=== PATIENT | female | born 1990 | race Caucasian/White ===

== ENCOUNTER → 2018-05-08 09:59 | Outpatient (CLI) | payer MEDICAID, SELFPAY ==
--- NOTE | 2018-05-08 10:01 | US_ITS ---
US extremity LT limited HISTORY: ITS.REASON: soft tissue mass left foot ORDERING PHYSICIAN: Lise Celeste DPM PATIENT AGE: 27 years COMPARISON: None FINDINGS: There is a tubular cystic lesion along the lateral aspect of the left foot corresponding to the palpable left amount of the. This measures 3.7 cm longitudinal x 0.7 cm thick over the lateral aspect of the left foot. This is subcutaneous. No vascular flow. IMPRESSION: Longitudinal cystic structure in the lateral subcutaneous region of the left at corresponding to palpable abnormality. Possibly related to a ganglion cyst. MRI may be of further value for characterization.
== END ==
PROVIDERS: PCP Pediatrics; Visit Provider Podiatrist
DX: R22.42 Localized swelling, mass and lump, left lower limb (principal)
CPT/HCPCS: 76882

== ENCOUNTER → 2018-10-15 09:00 | Outpatient (CLI) | payer MEDICAID, SELFPAY ==
--- NOTE | 2018-10-15 09:01 | MR_ITS ---
PROCEDURE: MR FOOT LT WO/W CON CLINICAL INDICATION: pain, soft tissue mass The soft tissue mass of the foot along the lateral aspect of the foot with foot pain with nerve symptoms, ganglion cyst possible, 2 in knots 1 lateral and 1 plantar surface with markers placed on both spots from in COMPARISON: FOOT LT 3V from 10/18/2017 EXTLL US extremity LT limited from 05/08/2018 TECHNIQUE: Routine multiplanar multi echo sequences are performed without and with gadolinium enhancement. FINDINGS: No fracture or dislocation. No bone marrow edema. Markers are placed to denote the area of palpable abnormality along the lateral aspect of the midfoot in the plantar aspect at the head of the 2nd and 3rd metatarsals. Or there is a small amount of fluid within the anterior and posterior aspect of the ankle joint and the posterior talocalcaneal joint. A tubular somewhat serpiginous sub cutaneous fluid collection is present extending into from the anterior aspect of the ankle just anterior to the distal fibula the at the level of the ankle joint extending inferiorly for length of approximately 4 cm and measuring up to 0.5 cm in with. This is hypointense on T1 and hyperintense on T2. This does show some contrast enhancement distally at the peroneal tendon sheath. Inferiorly this extends to the perineal brevis tendon sheath. Superiorly this originates within the subcutaneous tissues and not at a tendon or ligament. Palpable abnormality is also reported at the head of the 2nd and 3rd metatarsal. Markers also placed at this area. There is an area of subcutaneous edema at this region. In addition, there is an abnormal area of signal intensity rounded in nature which extends from between the flexor digitorum tendons of the 2nd and 3rd metatarsal distally for length of approximately 4.5 cm. Distally this shows decreased T1 and increased T2 signal and does demonstrate contrast enhancement this does arise along the distal aspect of the plantar fascia. IMPRESSION: 1. Well-circumscribed tubular shapes cystic appearing subcutaneous lesion along the lateral and anterior aspect of the ankle as described above. This does extend to the peroneal tendon sheath of the peroneal brevis. This could represent an atypical type of ganglionic cyst. Differential diagnosis would include a thrombosed vein. A nerve sheath tumor is felt to be less likely due to the ultrasound characteristics. Follow-up is suggested to confirm stability 2. Unusual longitudinal area of abnormal signal intensity with nodular enhancement distally arising between the 2nd and 3rd flexor digitorum tendons with some associated subcutaneous enhancement. The this is somewhat more distal than where 1 would expect a plantar fibroma however, that is included in the differential diagnosis. A nerve sheath tumor is also consideration. There is some inflammation around this lesion. This does not appear to represent a White's neuroma Dictated by: Ortiz Duke MD 10/18/2018 11:27 Signed by: <Electronically signed by Ortiz Duke MD in [place]> 10/18/2018 11:27
== END ==
PROVIDERS: PCP Pediatrics; Visit Provider Podiatrist
DX: M67.472 Ganglion, left ankle and foot (principal); R22.42 Localized swelling, mass and lump, left lower limb
CPT/HCPCS: 73720; A9576

== ENCOUNTER → 2018-11-10 11:42 | Outpatient (CLI) | payer MEDICAID, SELFPAY ==
--- NOTE | 2018-11-10 11:51 | XR_ITS ---
PROCEDURE: XR CHEST 2V CLINICAL HISTORY: FORMER TOBACCO USE, PRE-OP Slight cough at night, former tobacco use COMPARISON: No exams were available for comparison FINDINGS: The cardiomediastinal silhouette and pulmonary vascularity are within normal limits. The lungs are clear without infiltrates, suspicious nodules, or pleural effusions. No acute bony abnormalities. IMPRESSION: No acute findings. Dictated by: Ortiz Duke MD 11/10/2018 12:40 Electronically signed by Ortiz Duke MD in [place] 11/10/2018 12:40
--- NOTE | 2018-11-10 12:09 | ECG_ITS ---
APPROVED REPORT Exam: Resting ECG HR:81 bpm ECG Measurements Heart Rate 81 AXES OH 158 P 16 QRSd 74 QRS 24 QT 354 T 6 QTc 411 <Conclusion> Normal sinus rhythm Poor R Wave Progression Abnormal ECG Electronically signed by : Dann Ingram, 11/10/2018 17:32:38
[2018-11-10 12:45] LABS: Basophils % 0.5 % (0.1-2.0); Eosinophils # 0.2 K/mm3 (0.0-0.4); Eosinophils % 2.9 % (0.1-12.0); Hematocrit 41.8 % (37.0-47.0); Lymphocytes # 2.2 K/mm3 (0.7-4.5); Lymphocytes % 33.6 % (10-50); Mean Corpuscular HGB Conc 33.6 g/dL (31.8-35.4); Mean Corpuscular Hemoglobin 30.7 pg (27.0-31.2); Mean Corpuscular Volume 91.3 fl (81-99); Monocytes # 0.3 K/mm3 (0.1-1.0); Monocytes % 4.4 % (1.7-9.3); Neutrophils # 3.8 K/mm3 (1.8-7.8); Neutrophils % 58.5 % (37.0-80.0); Platelet Count 177 K/mm3 (142-424); Red Blood Count 4.58 M/mm3 (4.20-5.40); Red Cell Distribution Width 12.5 % (11.5-17.5); White Blood Count 6.5 K/mm3 (4.8-10.8)
[2018-11-10 15:07] LABS: Anion Gap 14.3 mEq/L (5-15); Blood Urea Nitrogen 10 mg/dL (7-18); Calcium 9.1 mg/dL (8.5-10.1); Carbon Dioxide 27 mmol/L (21.0-32.0); Chloride 103 mmol/L (98-107); Creatinine,Serum 0.69 mg/dL (0.55-1.02); Estimated Glomerular Filt Rate 101 ml/min (>60); GFR (African American) 122 ML/MIN (>60); Glucose 80 mg/dL (74-106); Potassium 4.3 mmoL/L (3.5-5.1); Sodium 140 mmol/L (136-145)
== END ==
PROVIDERS: PCP Pediatrics; Visit Provider Podiatrist
DX: Z01.818 Encounter for other preprocedural examination (principal); R22.42 Localized swelling, mass and lump, left lower limb
CPT/HCPCS: 36415; 71046; 80048; 85025; 93005